=== PATIENT | female | born 1960 | race Caucasian/White ===

== ENCOUNTER 2023-07-23 05:04 | Outpatient (CLI) | payer OTHER, SELFPAY ==
[2023-07-23] MEDS: Levalbuterol HFA 15 GM INH 4 PUFF IH (09:19)
[2023-07-23] MEDS: Inhaler, Assist Device 1 EACH MC (09:19)
--- NOTE | 2023-07-24 15:02 | W.PFT ---
Date of service: 07/23/23 Time of Service: 08:00 Pulmonary Function Test Result Indications: Persistent cough Interpretation Spirometry: No airflow limitation. No bronchodilator response Lung Volumes: Normal lung volumes Diffusion Capacity: Borderline decreased diffusion Airway Pressure: Normal airways resistance Impression Possible borderline low diffusion. May reflect emphysema, early ILD or pulmonary vascular disease. Clinical Correlation therefore is recommended.
== END 2023-07-23 05:05 | disposition home or self-care (01) ==
LOC: RT 05:04
PROVIDERS: PCP Physician Assistant; Visit Provider Physician Assistant Surgical
DX: R05.3 Chronic cough (principal); R94.2 Abnormal results of pulmonary function studies
CPT/HCPCS: 94060; 94726; 94729

== ENCOUNTER → 2023-08-07 00:14 | Outpatient (CLI) | payer OTHER, SELFPAY ==
--- NOTE | 2023-08-07 06:45 | DI.RAD_ITS ---
Exam(s) XR CHEST 2V PA LATERAL EXAM: XR CHEST 2V PA LATERAL CLINICAL HISTORY: chronic cough,r05.3,former smoker, TECHNIQUE: 2D digital imaging was performed of the chest. Two images were obtained. PA and lateral views were obtained. COMPARISON: No exams were available for comparison FINDINGS: MEDIASTINUM: Normal. HEART: Normal. PULMONARY VASCULATURE: Normal. LUNGS: There is a question of an infiltrate in the right middle lobe. The lungs are otherwise clear. PLEURAL SPACE: No pleural effusion or pneumothorax. BONE:Within normal limits for the patient's age. OTHER FINDINGS:Normal. IMPRESSION: Question of a right middle lobe infiltrate. Please correlate clinically. A CT scan of the chest may be obtained for further evaluation if clinically appropriate. DATA REPOSITORY: RADIATION DOSE DELIVERED:
--- NOTE | 2023-08-07 06:45 | DI.CT_ITS ---
Exam(s) CT SINUS WO EXAM: CT SINUS WO CLINICAL HISTORY: post nasal drip,persistent cough,former smoker, r05.3,. Evaluate for sinusitis. TECHNIQUE: Imaging Protocol: Axial computed tomography images with coronal and sagittal reformatted images were created and reviewed. COMPARISON: No exams were available for comparison FINDINGS: AXIAL IMAGES: Frontal sinuses: Normally aerated. Ethmoid air cells: Normally aerated. Maxillary sinuses: Normally aerated. Sphenoid sinus: Normally aerated. Ostiomeatal complexes: Patent. Osseous nasal septum: Midline. Visualized regional soft tissues: No acute findings. Orbits: Unremarkable. Bones: Unremarkable. Mastoid Air Cells: Normally aerated. IMPRESSION: Unremarkable examination. RADIATION DOSE DELIVERED: 113.41mGy.cm Total DLP 113.41mGy.cm Total DLP DATA REPOSITORY: All CT scans at this facility are submitted to the National Radiology Data Registry (NRDR) Dose Index Registry (DIR) with the [employer] (ACR). RADIATION OPTIMIZATION: All CT scans at this facility use at least one of these dose optimization te chniques: automated exposure control; mA and/or kV adjustment per patient size (includes targeted exa ms where dose is matched to clinical indication); or iterative reconstruction.
== END ==
PROVIDERS: PCP Physician Assistant; Visit Provider Physician Assistant Surgical
DX: R05.3 Chronic cough (principal); Z87.891 Personal history of nicotine dependence; R91.8 Other nonspecific abnormal finding of lung field
CPT/HCPCS: 70486; 71046

== ENCOUNTER 2024-05-01 01:22 | Outpatient (CLI) | payer OTHER, SELFPAY ==
[2024-05-01] MEDS: Methacholine 100 MG VIAL IH (17:02)
[2024-05-01] MEDS: Inhaler, Assist Device 1 EACH MC (17:02)
[2024-05-01] MEDS: Albuterol HFA 18 GM 200 PUFF INH IH (17:03)
--- NOTE | 2024-05-12 15:51 | W.PFT ---
Date of service: 05/01/24 Time of Service: 15:02 Pulmonary Function Test Result Indications: Cough Interpretation Spirometry: There is no baseline airflow limitation. There was a 16% decrease in FEV1 with administration of 16mg/mL methacholine. Impression Negative methacholine challenge. Clinical Correlation therefore is recommended.
== END 2024-05-01 01:23 | disposition home or self-care (01) ==
LOC: RT 01:22
PROVIDERS: PCP Physician Assistant; Visit Provider Student in an Organized Health Care Education/Training Program
DX: R05.3 Chronic cough (principal)
CPT/HCPCS: 94060; 94070; J7674

== ENCOUNTER 2024-06-18 02:01 | Outpatient (CLI) | payer OTHER, SELFPAY ==
[2024-06-18 08:50] LABS: Abs Immature Grans 0.03 10^3/uL (0.0-0.06); Absolute Basophil Count 0.08 10^3/uL (0.0-0.2); Absolute Eosinophil Count 0.35 10^3/uL (0.0-0.7); Absolute Lymphocyte Count 4.26 10^3/uL (1.2-3.4); Absolute Monocyte Count 0.52 10^3/uL (0.1-0.8); Absolute Neutrophil Count 3.33 10^3/uL (1.2-6.7); Basophils % 0.9 %; Eosinophils % 4.1 %; HCT 45.1 % (36.0-46.0); HGB 14.7 g/dL (11.2-15.7); Immature Grans % 0.4 %; Lymphocytes % 49.7 %; MCH 30.1 pg (27.0-33.0); MCHC 32.6 % (32.0-36.0); MCV 92 fL (80-95); MPV 10.4 fL (8.0-11.0); Monocytes % 6.1 %; Neutrophils % 38.8 %; Platelet Count 343 10^3/uL (130-400); RBC 4.89 10^6/uL (3.93-5.22); RDW 12.6 % (11.7-14.6); WBC 8.57 10^3/uL (4.4-10.8)
== END 2024-06-18 02:02 | disposition home or self-care (01) ==
LOC: LBO 02:01
PROVIDERS: PCP Physician Assistant; Visit Provider Internal Medicine Hematology & Oncology
DX: D72.820 Lymphocytosis (symptomatic) (principal)
CPT/HCPCS: 36415; 85025

== ENCOUNTER 2024-07-14 00:46 | Outpatient (CLI) | payer OTHER, SELFPAY ==
--- NOTE | 2024-07-14 | DI.US_ITS ---
Exam(s) US BREAST LT COMPLETE US BREAST RT COMPLETE MG MAMMO DIAGNOSTIC BI EXAM: MG MAMMO DIAGNOSTIC BI AND BILATERAL COMPLETE BREAST ULTRASOUND CLINICAL HISTORY: Lump in chest, R22.2. TECHNIQUE: BILATERAL CC AND MLO mammographic images were obtained with 3D tomosynthesis technique an shannon utilizing computer aided detection (CAD). COMPLETE BILATERAL BREAST ULTRASOUND performed including all 4 quadrants of both breasts as well as b oth axillary regions. COMPARISON: None. Her most recent mammogram was in 2018 in [place] and apparently not available at this time. This 63-year-old patient complains of subcutaneous soft tissue finding in the upper presternal region which is actually not in the breasts. This area is not included on a mammogram. She also complains of asymmetric density in the right axillary tail, not so much a mass as just asymm etric tissue which she feels as occasionally ???pulling???. She has had a remote right breast biopsy over 20 years ago, apparently negative for malignancy. FINDINGS: DIAGNOSTIC BILATERAL MAMMOGRAM: Fibroglandular tissue pattern is predominately fatty. There are no significant mammographic findings in left breast. There are 4 biopsy devices in the upper-outer quadrant of the right breast. One of these is so seate d with a small nodular density measuring 6 by 4 mm. See ultrasound report below. There are no other nodules in either breast nor malignant-appearing microcalcification groups. No abnormal tissue evid ent in the right axillary tail. There is no significant architectural distortion or skin thickening-retraction in either breast. BILATERAL COMPLETE BREAST ULTRASOUND: Left breast ultrasound: No evidence of solid or significant cystic lesions in all 4 quadrants. Scanning of the left axilla is negative for adenopathy. Right breast ultrasound: There is a solitary focal finding at the 10 o'clock position which most probably corresponds to the n odule seen at this location on the mammogram. This is a wider than taller benign-appearing 5 by 3 mi llimeter nodule. It may represent the nodule which was previously biopsied over 20 years ago or poss ibly scar tissue from the biopsy at this site. Unfortunately there are no previous for comparison. There are no other focal findings in all 4 quadrants of the right breast. Scanning of the right axilla is negative for adenopathy IMPRESSION: 1. No radiographic nor ultrasound findings in left breast 2. Solitary finding at the 10 o'clock position of the right breast as described above, this in site o f prior remote biopsy, over 20 years ago according to the patient performed in [place]. 3. Additional mormon be made to acquire prior images from [place] (2018). An addendum will follow if and when we receive these prior outside images. In the meantime, appropriate follow-up is repeat right breast imaging in 6 months, this to include re peat right breast mammogram and ultrasound. The patient was informed of the findings and follow-up recommendations by myself prior to leaving the department today. BI-RADS Category 3 - 6 month - Probably Benign Finding: Recommend follow-up mammography in 6 months Breast Density - Category B - There are scattered areas of fibroglandular density. Breast density Category C or D implies that the patient has dense breast tissue. Dense breast tissue can make it harder to find cancer on a mammogram. Dense breast tissue is also associated with an incr eased risk of breast cancer. This information about the result of the mammogram report was provided to the patient to raise their awareness. Use this report when you speak with the patient about their risks for breast cancer, which includes their family history. At that time, you may recommend additional screening tests (Ultrasoun d or MRI) as these tests may add significant information. A negative radiographic report should not delay biopsy if a dominant or clinically suspicious mass is present. Up to ten percent of cancers are not identified on mammography. A negative report may reinforce clinical impression. Adenosis and dense breasts may obscure an underlying neoplasm. False positive reports average 6 to 10%. Patient will receive a letter notifying them of these results.
== END 2024-07-14 01:06 ==
LOC: DI 00:46
PROVIDERS: PCP Physician Assistant; Visit Provider Nurse Practitioner Family
DX: Z12.31 Encounter for screening mammogram for malignant neoplasm of breast (principal); N63.11 Unspecified lump in the right breast, upper outer quadrant
CPT/HCPCS: 76642; 77062; 77066; G0279

== ENCOUNTER 2024-07-30 01:57 | Outpatient (CLI) | payer OTHER, SELFPAY ==
--- NOTE | 2024-07-30 | DI.CT_ITS ---
Exam(s) CT CHEST W EXAM: CT CHEST W CLINICAL HISTORY: LUMP IN CHEST,R22.2 TECHNIQUE: Imaging Protocol: Axial computed tomography images with coronal and sagittal reformatted images were created and reviewed. Computer aided detection (CAD) was utilized. CONTRAST MATERIAL: Intravenous: Omnipaque 350Contrast volume:70 mL. COMPARISON: CT CT CHEST/ABD/PEL W from 01/28/2024 US US BREAST LT COMPLETE from 07/14/2024 MG MG MAMMO DIAGNOSTIC BI from 07/14/2024 US US BREAST RT COMPLETE from 07/14/2024 FINDINGS: Tracheobronchial tree: Patent where visualized. No evidence of bronchiectasis. Pulmonary parenchyma: No consolidation or dominant measurable mass. No architectural distortion. Ther e are calcified granuloma seen in the lungs. There is scarring seen in the lung bases. Mediastinum and Courtney: No dominant adenopathy or fluid collection. The esophagus is unremarkable. Thyroid gland: Unremarkable. Pleura: No effusion or pneumothorax. Heart: The heart is not dilated. Mild coronary artery calcification. No pericardial effusion. Aorta: Thoracic aorta non-dilated. Mild atherosclerotic calcification. No evidence of dissection. Pulmonary arteries: No pulmonary emboli are identified. Upper abdomen: There is diffuse decreased attenuation of the liver consistent with hepatic steatosis . Lymph nodes: Within normal limits. Bones: Within normal limits for the patient's age. Soft tissues: Unremarkable. No soft tissue masses are seen in the parasternal regions. No skin thick ening is present. IMPRESSION: 1. No acute pulmonary process. 2. Hepatic steatosis. 3. No evidence of a parasternal mass. RADIATION DOSE DELIVERED: 114.08mGy.cm Total DLP DATA REPOSITORY: All CT scans at this facility are submitted to the National Radiology Data Registry (NRDR) Dose Index Registry (DIR) with the [employer] (ACR). RADIATION OPTIMIZATION: All CT scans at this facility use at least one of these dose optimization te chniques: automated exposure control; mA and/or kV adjustment per patient size (includes targeted exa ms where dose is matched to clinical indication); or iterative reconstruction.
--- NOTE | 2024-07-30 07:50 | DI.US_ITS ---
Exam(s) US THYROID EXAM: US THYROID CLINICAL HISTORY: ENLARGED THYROID,E04.0,NONTOXIC GOITER. TECHNIQUE: Ultrasound thyroid performed using standard protocol. COMPARISON: No exams were available for comparison FINDINGS: ISTHMUS: 2.6 mm RIGHT LOBE: Size: 4.6 x 1.2 x 1.9 cm Echogenicity: Normal. Vascularity: Normal. Nodules: There is a 0.4 cm small solid nodule in the midpole of the right lobe of the thyroid gland. Due to its characteristics and size no follow-up is recommended. No suspicious right thyroid nodule s are present. LEFT LOBE: Size: 4.0 x 1.1 x 1.2 cm Echogenicity: Normal. Vascularity: Normal. Nodules: None. OTHER FINDINGS: None. IMPRESSION: No suspicious thyroid nodules are present. DATA REPOSITORY:
[2024-07-30 08:09] LABS: CREATININE 0.9 mg/dL (0.55-1.02); Estimated GFR 70.95 (mL/min/1.73m2)
[2024-07-30] MEDS: Omnipaque 350 MG/ML 100 ML BTL 70 ML IJ (08:20)
[2024-07-30] MEDS: Normal Saline - Diluent 50 ML VIAL IJ (08:21)
== END 2024-07-30 02:17 ==
LOC: DI 01:57
PROVIDERS: PCP Physician Assistant; Visit Provider Nurse Practitioner Family
DX: E04.0 Nontoxic diffuse goiter (principal)
CPT/HCPCS: 71260; 76536; 82565; J3490

== ENCOUNTER 2024-09-03 19:37 | Outpatient (REF) | payer OTHER, SELFPAY ==
[2024-09-03 22:22] LABS: Rheumatoid Factor <8.6 IU/mL (<12.0)
[2024-09-04 09:11] LABS: Cyclic Citrullinated Peptide <2.5 U/mL (<5.0)
[2024-09-04 14:14] LABS: ANA Interpretation Positive (Negative); ANA Titer Pattern 1:160 Speckled
== END 2024-09-03 19:38 | disposition home or self-care (01) ==
LOC: LBN 19:37
PROVIDERS: PCP Physician Assistant; Visit Provider Physician Assistant Surgical
DX: R05.3 Chronic cough (principal); J98.4 Other disorders of lung
CPT/HCPCS: 86200; 86038; 86431

== ENCOUNTER 2024-09-17 08:18 | Outpatient (CLI) | payer OTHER, SELFPAY ==
[2024-09-17 08:16] LABS: Abs Immature Grans 0.03 10^3/uL (0.0-0.06); HCT 39.8 % (36.0-46.0); HGB 13.2 g/dL (11.2-15.7); Immature Grans % 0.3 %; MCH 30.3 pg (27.0-33.0); MCHC 33.2 % (32.0-36.0); MCV 91 fL (80-95); MPV 9.6 fL (8.0-11.0); Platelet Count 320 10^3/uL (130-400); RBC 4.36 10^6/uL (3.93-5.22); RDW 12.7 % (11.7-14.6); RDW-SD 42.5 fL; WBC 9.57 10^3/uL (4.4-10.8)
== END 2024-09-17 08:19 | disposition home or self-care (01) ==
LOC: LBO 08:18
PROVIDERS: PCP Physician Assistant; Visit Provider Internal Medicine Hematology & Oncology
DX: D72.820 Lymphocytosis (symptomatic) (principal)
CPT/HCPCS: 36415; 85025

== ENCOUNTER 2024-11-03 15:11 | Outpatient (REF) | payer OTHER, SELFPAY ==
[2024-11-03 16:14] LABS: TSH (W/Ref FT4) 2.41 uIU/mL (0.36-3.74)
[2024-11-04 10:39] LABS: Ro60 Ab, IgG <7.0 CU (<20.0); SS-A/Ro, IgG <2.3 CU (<20.0); SS-B (La) Ab, IgG <3.3 CU (<20.0)
[2024-11-04 17:30] LABS: Myeloperoxidase Ab IgG <0.2 U (>=0.4); Scl 70 Antibodies, IgG 1.3 U
== END 2024-11-03 15:12 | disposition home or self-care (01) ==
LOC: LBN 15:11
PROVIDERS: PCP Physician Assistant; Visit Provider Physician Assistant Surgical
DX: R05.3 Chronic cough (principal); J98.4 Other disorders of lung
CPT/HCPCS: 83516; 86235; 84443; 86225

== ENCOUNTER 2024-12-17 03:33 | Outpatient (CLI) | payer OTHER, SELFPAY ==
[2024-12-17 13:52] LABS: Abs Immature Grans 0.05 10^3/uL (0.0-0.06); HCT 38.6 % (36.0-46.0); HGB 12.8 g/dL (11.2-15.7); Immature Grans % 0.5 %; MCH 30.0 pg (27.0-33.0); MCHC 33.2 % (32.0-36.0); MCV 91 fL (80-95); MPV 9.6 fL (8.0-11.0); Platelet Count 334 10^3/uL (130-400); RBC 4.26 10^6/uL (3.93-5.22); RDW 13.2 % (11.7-14.6); RDW-SD 43.3 fL; WBC 9.10 10^3/uL (4.4-10.8)
== END 2024-12-17 03:34 | disposition home or self-care (01) ==
LOC: LBO 03:33
PROVIDERS: PCP Physician Assistant; Visit Provider Nurse Practitioner Family
DX: D72.820 Lymphocytosis (symptomatic) (principal)
CPT/HCPCS: 36415; 85025

== ENCOUNTER → 2025-01-15 02:03 | Outpatient (CLI) | payer OTHER, SELFPAY ==
--- NOTE | 2025-01-15 | DI.MAMMO_ITS ---
Exam(s) MG MAMMO DIAGNOSTIC UNI US BREAST RT LIMITED EXAM: MG MAMMO DIAGNOSTIC UNI and U/S breast RT limited CLINICAL HISTORY: 6 MO F/U, F/U ABLN MAMMO,R92.8,RT FINDING. TECHNIQUE: Craniocaudal and mediolateral oblique Full Field Digital Mammography views of the right breast with Computer Aided Diagnosis followed by Tomosynthesis and limited right breast ultrasound. COMPARISON: Comparison is made with prior examinations. FINDINGS: Mammography/Tomosynthesis: Masses/Architectural Distortion: The well-circumscribed nodule in the upper outer quadrant of the right breast is again seen. There is a biopsy clip in the vicinity of the nodule again noted. Microcalcifictions: No suspicious pleomorphic-type are seen. Skin Thickening/Nipple Retraction: None. Limited right breast US: Echotexture: Normal appearance of the glandular tissue. Shadowing: No suspicious foci. Cyst: None. Solid lesions: There is a well-circumscribed hypoechoic nodule at the 10 o'clock position of the right breast 8 cm from the nipple. It is unchanged compared to the prior examination. Ductal dilation: None. IMPRESSION: 1. No evidence of malignancy is noted. 2. A six-month follow-up evaluation is recommended. The patient should have her yearly bilateral mammogram and a right breast ultrasound at that time. 3. The findings were discussed with the patient on the date of the examination. BI-RADS Category 3 - 6 month - Probably Benign Finding: Recommend follow-up imaging in 6 months Breast Density - Category B - There are scattered areas of fibroglandular density. Breast density Category C or D implies that the patient has dense breast tissue. Dense breast tissue can make it harder to find cancer on a mammogram. Dense breast tissue is also associated with an increased risk of breast cancer. This information about the result of the mammogram report was provided to the patient to raise their awareness. Use this report when you speak with the patient about their risks for breast cancer, which includes their family history. At that time, you may recommend additional screening tests (Ultrasound or MRI) as these tests may add significant information. A negative radiographic report should not delay biopsy if a dominant or clinically suspicious mass is present. Up to ten percent of cancers are not identified on mammography. A negative report may reinforce clinical impression. Adenosis and dense breasts may obscure an underlying neoplasm. False positive reports average 6 to 10%. Patient will receive a letter notifying them of these results.
== END ==
PROVIDERS: PCP Physician Assistant; Visit Provider Nurse Practitioner Family
DX: R92.8 Other abnormal and inconclusive findings on diagnostic imaging of breast (principal)
CPT/HCPCS: 76642; 77061; 77065; G0279

== ENCOUNTER 2025-02-26 09:55 | Day surgery (SDC) | payer OTHER, SELFPAY ==
[2025-02-26 10:11] VITALS: BP 128/91; PULSE 98; RESP 17; TEMP 36.4; O2SAT 98
[2025-02-26] MEDS: Lactated Ringers 1,000 ML 80 ML IV (10:36)
--- NOTE | 2025-02-26 11:48 | W.ANESPRE ---
General Info Date of Service Date Performed: 02/26/25 Height: 5 ft 1 in Weight: 76.4 kg Body Mass Index (BMI): 31.8 Surgical Procedure: Operation Date: 02/26/25 11:20 Proposed Procedure Side Surgeon p Gastroscopy Jasmin Morton MD Meds Allergies and Home Medications Allergies Allergy/AdvReac Type Severity Reaction Status Date / Time Penicillins Allergy Unknown Other (See Verified 02/26/25 10:04 Comment) lorazepam Allergy Intermediate Agitation Uncoded 02/26/25 10:04 Home Medication ?Medication ?Instructions ?Recorded atorvastatin 20 mg tablet 20 mg PO DAILY 07/06/23 benzonatate 200 mg capsule 200 mg PO TID PRN 07/06/23 cholecalciferol (vitamin D3) 125 125 mcg PO DAILY 07/06/23 mcg (5,000 unit) capsule clonazepam 0.5 mg tablet 0.5 mg PO BID PRN 07/06/23 dextroamphetamine-amphetamine 20 20 mg PO BID 07/06/23 mg tablet fluoxetine 20 mg capsule 20 mg PO DAILY 07/06/23 montelukast 10 mg tablet 10 mg PO DAILY 07/06/23 multivitamin 1 tab PO DAILY 07/06/23 pantoprazole 40 mg tablet,delayed 40 mg PO DAILY 07/06/23 release albuterol sulfate 90 mcg/actuation 2 puff inhalation Q6H PRN 08/13/23 aerosol inhaler shortness of breath or wheezing #8.5 grams magnesium See Rx Instructions PO .COMPLEX 12/11/23 fluticasone propionate 50 2 spray intranasal DAILY PRN 04/21/24 mcg/actuation nasal spray,suspension metformin 500 mg tablet 500 mg PO BID 11/03/24 Saccharomyces boulardii 250 mg 250 mg PO BID 02/18/25 capsule (Daily Probiotic (S. boulardii)) brexpiprazole 2 mg tablet (Rexulti) 3 mg PO DAILY 02/18/25 calcium carbonate 600 mg PO DAILY 02/18/25 cyanocobalamin (vitamin B-12) 1,000 mcg PO DAILY 02/18/25 1,000 mcg capsule cyclobenzaprine 10 mg tablet 20 mg PO DAILY PRN 02/26/25 lidocaine 4 % topical patch 1 patch topical DAILY PRN 02/26/25 (Lidocare) Current Visit Medications: Current Medications Generic Name Dose Route Start Last Admin Trade Name Freq PRN Reason Stop Dose Admin Ringer's Solution 1,000 mls @ 80 mls/hr 02/26/25 06:00 02/26/25 10:36 IV 02/26/25 23:59 80 mls/hr INFUSION KRISTEN Administration Sodium Chloride 0 ml 02/26/25 06:00 Normal Saline Flush 10 Ml Syr IV 02/26/25 23:59 PRN PRN Sodium Chloride 0 ml 02/26/25 06:00 Normal Saline 10 Ml Vial IJ 02/26/25 23:59 DIRECTED PRN Sterile Water 0 ml 02/26/25 06:00 Water,Injection,Sterile 10 Ml Vial IJ 02/26/25 23:59 DIRECTED PRN PFSH Active Problems Active Problems: Problem Status Onset Code Scarring of lung Acute J98.4 Pulmonary embolism Chronic I26.99 Mixed anxiety and depressive disorder Acute F41.8 Lower back pain Acute M54.50 Tremor Acute R25.1 Pain in hand Acute M79.643 Unexplained chronic cough Acute R05.3 ADHD (attention deficit hyperactivity disorder), inattentive type Acute F90.0 Ex-smoker Acute Z87.891 Voice tremor Acute R49.8 Elevated blood pressure reading without diagnosis of hypertension Acute R03.0 Abnormal electrocardiogram Acute R94.31 Persistent cough Acute R05.3 Fluttering heart Acute I49.8 Hoarse Acute R49.0 Ataxic gait Acute R26.0 Lumbago with sciatica Acute M54.40 Neck pain Acute M54.2 Fibrocystic breast disease Acute N60.19 GERD (gastroesophageal reflux disease) Chronic K21.9 Dental abscess Acute K04.7 Bronchitis Acute J40 Allergic rhinitis Acute J30.9 Generalized anxiety disorder Acute F41.1 Lymphocytosis Acute D72.820 Dyslipidemia Acute E78.5 Vitamin D deficiency Acute E55.9 Medical History Medical History History of benign breast biopsy Hx of duodenal ulcer Surgical History Surgical History Hx of hysterectomy H/O arthroscopy Tobacco Smoking/Tobacco Use Status: Former Tobacco Use Alcohol Alcohol Intake: current Alcohol intake frequency: a few times a month Substance Use Substance use: Daily Substance use type: marijuana Details: inhaled, last use was 02/25/25. Vital Signs and Lab Results Vital Signs Most Recent Vital Signs in EMR: Most Recent Vital Signs Temp Pulse Resp BP Pulse Ox 36.4 C L 98 H 17 128/91 H 98 02/26/25 10:11 02/26/25 10:11 02/26/25 10:11 02/26/25 10:11 02/26/25 10:11 Anesthesia Assessment and Plan Anesthesia History Personal History: No History of Anesthesia Complications Family History: No Family History of Anesthesia Complications Exercise Tolerance Exercise Tolerance: Metabolic Equivalents>4 Pertinent Negatives Pertinent Negatives: No Symptoms of GERD Cardiac & Pulmonary Exam Cardiac Exam: Normal S1/S2 Heart Sounds Pulmonary Exam: Clear Bilateral Breath Sounds Implantable Cardiac Device Does patient have a Pacemaker or an ICD?: No Airway Exam Known Difficult Airway: No Mallampati Class: 2 Mouth Opening: Normal (> 3cm) Thyromental Distance: Greater than 3 cm Neck Range of Motion: Full ROM Neck Circumference: Normal Teeth Condition: Normal Dentition ASA Classification ASA Score: ASA 2 Emergency Case?: No NPO Status NPO Status: NPO Clears >2 hours, Solids >8 hours Anesthesia Plan Resuscitation Status: Full Code Anesthesia Technique: General Anesthesia Airway Planned: Natural Airway Monitors Used: Standard Monitors
[2025-02-26 11:49] VITALS: BMI 31.8
--- NOTE | 2025-02-26 12:00 | STOM_PTH ---
PATIENT: Suze Anderson LOC: [facility] U#:[id number] AGE/SX: 64/F ROOM: RE02/26/[address]: Jasmin Morton MD : 1960 BED: DIS: 02/26/2025 SPEC #: [id number] RECD: 02/26/25 13:21 STATUS: ALANA REQ #: [id number] CHRISSY: 02/26/25 12:[address]: Jasmin Morton DEPT: Surgical Specimen RECD BY: Leyda Soto ENTERED: 02/26/25 13:22 SP TYPE: STOMACH OTHR DR: Kim Burnett Tissues: 1 - STOMACH BIOPSY 2 - ESOPHAGUS BIOPSY Procedures: GROSS AND MICRO LEVEL 4 Comments: [id number]
[2025-02-26 12:08] VITALS: BP 105/72; PULSE 98; RESP 16; TEMP 36.5; O2SAT 95
--- NOTE | 2025-02-26 12:08 | ENDO_ITS ---
Date of service: 02/26/25 Time of Service: 12:08 Endoscopy Report DATE OF PROCEDURE: 11/06/24 PRE-OP DIAGNOSIS: cough, GERD POST-OP DIAGNOSIS: same (hiatal hernia present) PROCEDURE: EGD with biopsy SURGEON: Jasmin Morton ANESTHESIA TYPE: General:No Airway ESTIMATED BLOOD LOSS: 2 PATHOLOGY: other (1. antrum biopsy. 2. distal esophagus biopsy) COMPLICATIONS: None DISPOSITION: same day INDICATIONS: Evaluation of upper digestive system for epigastric pain source/cause PROCEDURE DESCRIPTION: Lubricated endoscope was passed through a bite block into the second portion of the duodenum. The endoscope was withdrawn and the duodenum stomach and esophageal mucosa examined. The duodenum appeared normal. There is no inflammation or ulceration or erosion. The antrum appears normal. The fundus appears normal. One small 2-3mm fundic gland polyp was seen. The cardia appears normal. The endoscope was retroflexed and there is small hiatal hernia present. Active sliding and reflux exhibited during exam. GE junction is at 37cm from the incisors. The distal esophagus is mildly inflamed, without ulceration, varices or candidiasis. The Z-line is regular aside from two areas of extension. There is no gross evidence of Medina's esophagus. Remainder of the esophagus appears normal Cold forceps biopsies obtained from the antrum for microscopic evaluation for H. pylori, and from the esophagus to look for esophagitis or microscopic Barretts. The upper digestive system was desufflated and the endoscope withdrawn. No complications. Assessment and plan: cough GERD hiatal hernia with mild esophagitis hiatal hernia identified as the most likely cause of her symptoms. Uncontrolled reflux through hiatal hernia despite daily PPI. Recommend increasing pantopraz ole to BID at this time and following up on symptom control. I will have her wait until after pending UGI study to make this change. See me in office to review todays procedure and biopsy results, and the upper GI study. Findings will determine path of care for her GERD.
--- NOTE | 2025-02-26 12:11 | W.ANESPOSTOP ---
Postoperative Evaluation Date, Time and Location Date Performed: 02/26/25 Time Performed: 12:12 Patient Location: Day Surgery Unit Vital Signs Most Recent Imported Vital Signs: Most Recent Vital Signs Temp Pulse Resp BP Pulse Ox 36.4 C L 98 H 17 128/91 H 98 02/26/25 10:11 02/26/25 10:11 02/26/25 10:11 02/26/25 10:11 02/26/25 10:11 Pain Score Most Recent Pain Score: Most Recent Pain Score Pain Level 0 02/26/25 10:11 Assessment Mental Status: Awake (Alert & Oriented to Patient Baseline) Airway and Respiratory Function: Patent airway with normal (patient baseline) respiratory exam Cardiovascular Function: Hemodynamically Stable Hydration Status: Adequately Hydrated Nausea & Vomiting: No Nausea or Vomiting Pain: Pt. Denies Any Pain Peripheral Nerve Block: Patient did not receive a nerve block
--- NOTE | 2025-02-26 12:13 | W.PM.DSUDISC ---
Date of service: 02/26/25 Discharge Plan Disposition Patient Disposition: Home Condition: Stable Discharge Details Attending Provider: Jasmin Morton Primary Care Provider: Kim Burnett Home Meds and New Rx's Prescriptions: New pantoprazole 40 mg tablet,delayed release (DR/EC) 40 mg PO BID Qty: 30 3RF Continued albuterol sulfate 90 mcg/actuation HFA aerosol inhaler 2 puff inhalation Q6H PRN (Reason: shortness of breath or wheezing) Qty: 8.5 6RF calcium carbonate 600 mg calcium (1,500 mg) tablet 600 mg PO DAILY Saccharomyces boulardii [Daily Probiotic (S. boulardii)] 250 mg capsule 250 mg PO BID cyanocobalamin (vitamin B-12) 1,000 mcg capsule 1,000 mcg PO DAILY magnesium See Rx Instructions PO .COMPLEX Rx Instructions: orally as directed; Rexulti 2 mg tablet 3 mg PO DAILY metformin 500 mg tablet 500 mg PO BID Patient Comments: TAKE 1 TABLET BY MOUTH TWICE DAILY FOR PREDIABETES atorvastatin 20 mg tablet 20 mg PO DAILY benzonatate 200 mg capsule 200 mg PO TID PRN cholecalciferol (vitamin D3) 125 mcg (5,000 unit) capsule 125 mcg PO DAILY clonazepam 0.5 mg tablet 0.5 mg PO BID PRN dextroamphetamine-amphetamine 20 mg tablet 20 mg PO BID Rx Instructions: administer doses at least 4-6 hours apart fluoxetine 20 mg capsule 20 mg PO DAILY montelukast 10 mg tablet 10 mg PO DAILY multivitamin Tablet 1 tab PO DAILY fluticasone propionate 50 mcg/actuation spray,suspension 2 spray intranasal DAILY PRN Rx Instructions: administer into each nostril cyclobenzaprine 10 mg tablet 20 mg PO DAILY PRN lidocaine [Lidocare] 4 % adhesive patch,medicated 1 patch topical DAILY PRN Discontinued pantoprazole 40 mg tablet,delayed release (DR/EC) 40 mg PO DAILY Discharge Instructions Additional Instructions: hiatal hernia identified as the most likely cause of your symptoms. Uncontrolled reflux through hiatal hernia despite daily medication has caused esophagus irritation and probably even the hoarseness of your voice. I recommend increasing pantoprazole to twice daily, but I will have you wait until after the pending upper GI xray that I ordered on you to make this change. See me in office to review todays procedure and biopsy results (routine biopsies of stomach and esophagus to investgate your reflux), and the upper GI study. Findings will determine path of care for GERD longterm. Stand Alone Forms: Portal Information Discharge Orders Discharge Orders: Discharge Order (Routine); Ordered 02/26/25 Ordered By: Jasmin Morton DS: Diagnosis Discharge Diagnosis (1) Hiatal hernia with GERD and esophagitis: Status: Acute
[2025-02-26 12:34] VITALS: BP 125/86; PULSE 87; RESP 16; TEMP 36.6; O2SAT 98
== END 2025-02-26 12:42 | disposition home or self-care (01) ==
PROVIDERS: PCP Nurse Practitioner Family; Visit Provider Surgery
PROC: 0DJ68ZZ Inspection of Stomach, Via Natural or Artificial Opening Endoscopic (ICD-10-PCS; CPT 43235; principal; 2025-02-26 11:15)
DX: K44.9 Diaphragmatic hernia without obstruction or gangrene (principal); K21.00 Gastro-esophageal reflux disease with esophagitis, without bleeding; K22.89 Other specified disease of esophagus
CPT/HCPCS: 43239; 88305; J2003; J2704